=== PATIENT | female | born 1980 | race Two or more races ===

== ENCOUNTER 2022-03-01 06:15 | Emergency (ER) | payer OTHER ==
[2022-03-01 07:15] VITALS: BP 154/83; PULSE 80; TEMP 98.3; BMI 33.5
[2022-03-01] MEDS ORDERED: LIDOCAINE 5% TOPICAL PATCH TP ONE (07:42)
[2022-03-01] MEDS ORDERED: ACETAMINOPHEN 500 MG TABLET (FP) PO ONE (07:43)
[2022-03-01] MEDS ORDERED: diazePAM 5 MG TABLET PO ONE (07:43)
[2022-03-01] MEDS ORDERED: diazePAM 5 MG TABLET ONE (07:52)
[2022-03-01] MEDS ORDERED: LIDOCAINE 5% TOPICAL PATCH ONE (07:53)
[2022-03-01] MEDS ORDERED: ACETAMINOPHEN 325 MG TABLET (FP) ONE (07:55)
[2022-03-01] MEDS ORDERED: predniSONE 20 MG TABLET (UD) PO ONE (08:38)
[2022-03-01] MEDS ORDERED: predniSONE 20 MG TABLET (UD) ONE (09:09)
[2022-03-01] MEDS ORDERED: LIDOCAINE PATCH REMOVAL MC ONE (22:00)
== END 2022-03-01 10:08 | disposition home or self-care (01) ==
LOC: JER 06:15 → JERFT 06:15
DX: M62.838 Other muscle spasm (principal); M54.2 Cervicalgia; M25.511 Pain in right shoulder
CPT/HCPCS: 99283-25